=== PATIENT | female | born 1985 | race Caucasian/White ===

== ENCOUNTER → 2016-06-21 | Outpatient (CLI) | payer OTHER ==
[~2016-06-21] VITALS: Ht 162.6 cm; Wt 80.0 kg
[~2016-06-21] MED LIST: AMOXICILLIN500 MG PO; FEOSOL325 MG PO; FLINTSTONES GU1 EACH PO; IBUPROFEN800 MG PO; MOTRIN800 MG PO; NAPROSYN500 MG PO; NORCO 5/3251 TABLET PO; PRENATAL TABLE1 EACH PO
[2016-06-21 12:02] VITALS: BP 122/59
== END | disposition home or self-care (01) ==
LOC: IVINF 10:30
DX: O36.0990 Maternal care for other rhesus isoimmunization, unspecified trimester, not applicable or unspecified (principal); Z3A.00 Weeks of gestation of pregnancy not specified
CPT/HCPCS: 96372; J2790

== ENCOUNTER 2016-09-06 07:19 | Inpatient (IN) | payer OTHER ==
[2016-09-06] VITALS (44 sets, daily range): BP systolic 97–164; BP diastolic 53–104
[~2016-09-06] VITALS: Ht 162.6 cm; Wt 82.7 kg
[2016-09-06 09:46] LABS: EOSINOPHIL (%) 0.3 % (0-5); IMMATURE GRANULOCYTE (%) 0.7 % (0.0-0.7); IMMATURE GRANULOCYTE COUNT 0.1 K/uL; INSTRUMENT ABS NEUTROPHIL CT 4.6 K/uL; LYMPHOCYTE COUNT 2.3 K/uL (1.0-2.8); MCH 26.7 PG (29.0-34.0); MCHC 31.9 G/DL (30.0-36.0); MCV 83.8 FL (83-99); MEAN PLAT.VOLUME 10.1 uM^3 (9.5-12.4); MONOCYTE (%) 8.6 % (3-12); MONOCYTE COUNT 0.7 K/uL (0-0.8); NEUTROPHIL (%) 60.6 % (45-76); NEUTROPHIL COUNT 4.6 K/uL (1.8-6.4); PLATELET COUNT 181 K/uL (156-360); RBC DIS.WIDTH-CV 16.6 % (11.8-14.6); RBC DIS.WIDTH-SD 50.7 % (39-53); RED BLOOD COUNT 3.82 M/uL (3.80-5.20); WHITE BLOOD COUNT 7.7 K/uL (4.1-10.2)
[2016-09-07 07:48] LABS: EOSINOPHIL (%) 0.2 % (0-5); HEMATOCRIT 24.8 % (36.0-46.0); IMMATURE GRANULOCYTE (%) 0.5 % (0.0-0.7); IMMATURE GRANULOCYTE COUNT 0.1 K/uL; INSTRUMENT ABS NEUTROPHIL CT 6.1 K/uL; LYMPHOCYTE COUNT 2.4 K/uL (1.0-2.8); MCH 27.4 PG (29.0-34.0); MCHC 32.7 G/DL (30.0-36.0); MCV 83.8 FL (83-99); MEAN PLAT.VOLUME 10.6 uM^3 (9.5-12.4); MONOCYTE (%) 7.9 % (3-12); MONOCYTE COUNT 0.7 K/uL (0-0.8); NEUTROPHIL (%) 65.3 % (45-76); NEUTROPHIL COUNT 6.1 K/uL (1.8-6.4); PLATELET COUNT 155 K/uL (156-360); RBC DIS.WIDTH-CV 16.6 % (11.8-14.6); RBC DIS.WIDTH-SD 50.4 % (39-53); WHITE BLOOD COUNT 9.3 K/uL (4.1-10.2)
[2016-09-07 07:52] LABS: RED BLOOD COUNT 2.96 M/uL (3.80-5.20)
[2016-09-07 07:59] VITALS: BP 119/57
[2016-09-07 15:06] VITALS: BP 130/60
[2016-09-07 22:45] VITALS: BP 124/67
[2016-09-08 07:31] VITALS: BP 127/59
[2016-09-08] MEDS ORDERED: VITRON-C TABLE1 EACH PO (11:14)
[2016-09-08] MEDS ORDERED: COLACE100 MG PO (11:15)
== END 2016-09-08 12:20 | disposition home or self-care (01) | DRG 774 ==
LOC: LDRP-OP 07:19 → 2WEST 07:20 → LDRP-OP 11:53 → 2WEST 19:07 → LDRP-OP 10-12 10:02
PROVIDERS: Advanced Practice Midwife
DX: O72.1 Other immediate postpartum hemorrhage (principal); O69.82X0 Labor and delivery complicated by other cord entanglement, without compression, not applicable or unspecified; O99.02 Anemia complicating childbirth; D62 Acute posthemorrhagic anemia; O99.214 Obesity complicating childbirth; E66.3 Overweight; Z3A.39 39 weeks gestation of pregnancy; Z37.0 Single live birth; Z86.001 Personal history of in-situ neoplasm of cervix uteri; Z68.26 Body mass index [BMI] 26.0-26.9, adult
CPT/HCPCS: 83030; 85025; 86870; 86900; 86901; 86905; C1755; J2790; J7120

== ENCOUNTER 2017-01-06 05:32 | Day surgery (SDC) | payer OTHER ==
[~2017-01-06] VITALS: Ht 165.1 cm; Wt 72.6 kg
[~2017-01-06 05:32] MED LIST changes: +COLACE100 MG PO; +VITRON-C TABLE1 EACH PO
[2017-01-06 06:44] VITALS: BP 117/64
[2017-01-06 06:45] VITALS: BP 117/64
[2017-01-06] MEDS ORDERED: ENDOCET 5-3251 EACH PO (08:15)
[2017-01-06 09:27] VITALS: BP 131/74
[2017-01-06 10:05] VITALS: BP 122/74
== END 2017-01-06 10:09 | disposition home or self-care (01) ==
LOC: SDC 05:32
PROC: 0U574ZZ Destruction of Bilateral Fallopian Tubes, Percutaneous Endoscopic Approach (ICD-10-PCS; principal; 2017-01-06)
DX: Z30.2 Encounter for sterilization (principal); D64.9 Anemia, unspecified; N87.1 Moderate cervical dysplasia; Z82.49 Family history of ischemic heart disease and other diseases of the circulatory system
CPT/HCPCS: J0131; J1100; J1885; J2250; J2405; J2710; J3010; S0020

== ENCOUNTER 2017-06-28 21:01 | Emergency (ER) | payer OTHER ==
[~2017-06-28] VITALS: Ht 165.1 cm; Wt 76.5 kg
[~2017-06-28 21:01] MED LIST changes: +ENDOCET 5-3251 EACH PO
[2017-06-28] MEDS ORDERED: NAPROSYN500 MG PO (23:09)
[2017-06-28] MEDS ORDERED: FLEXERIL10 MG PO (23:09)
[2017-06-28 23:40] VITALS: BP 144/100
== END 2017-06-28 23:46 | disposition home or self-care (01) ==
LOC: EME 21:01
DX: S06.0X9A Concussion with loss of consciousness of unspecified duration, initial encounter (principal); S13.4XXA Sprain of ligaments of cervical spine, initial encounter; V89.2XXA Person injured in unspecified motor-vehicle accident, traffic, initial encounter; Y92.410 Unspecified street and highway as the place of occurrence of the external cause
CPT/HCPCS: 99281; 99283